=== PATIENT | male | born 1940 | race Hispanic/Latino ===

== ENCOUNTER 2017-04-19 15:24 | Inpatient (IN) | payer OTHER, MEDICARE ==
[~2017-04-19] VITALS: Ht 165.1 cm; Wt 79.4 kg
[~2017-04-19 15:24] MED LIST: ASPI-555 PO; ATOR40TA71 PO; FURO40TA5 PO; GABA-529 PO; HYDR-4154 PO; LISI40TA4 PO; METO-391 PO; METO2.5T2 PO; PANT40TA25 PO; RIVA20TA PO; VANC250C5 PO
[2017-04-19 16:11] LABS: BASOPHILS % (AUTO) 0.3 % (0.0-5.0); HEMATOCRIT 35.7 % (42-54); LYMPHOCYTES % (AUTO) 4.9 % (21.0-51.0); MEAN CORPUSCULAR HGB CONC 31.7 g/dL (32.0-36.0); MEAN CORPUSCULAR VOLUME 88.5 fL (79-99); MONOCYTES % (AUTO) 2.9 % (3.0-13.0); NEUTROPHILS % (AUTO) 91.9 % (40.0-77.0); NUCLEATED RED BLOOD CELLS 0.1 % (0.0-0.19); PLATELET COUNT (AUTO) 208 K/uL (130-400); RED BLOOD CELL COUNT(AUTO) 4.03 MIL/uL (4.50-6.20); RED CELL DISTRIBUTION WIDTH 22.7 % (11.0-15.5); WHITE BLOOD COUNT (AUTO) 16.1 K/uL (4.8-10.8)
[2017-04-19] MEDS ORDERED: SODIUM CHLORIDE 0.9% 500ML 500 ML IV ONE (16:22)
[2017-04-19 16:26] LABS: INR 1.38 (0.85-1.15); PARTIAL THROMBOPLASTIN TIME 32.4 SEC (26.3-35.5); PROTHROMBIN TIME 14.4 SEC (9.6-11.6)
[2017-04-19 16:42] LABS: ALBUMIN 2.6 g/dL (3.5-5.0); BILIRUBIN,TOTAL 1.1 mg/dL (0.2-1.0); CREATINE KINASE MB 3.9 ng/mL (0.5-3.6); CREATININE 4.5 mg/dL (0.5-1.5); POTASSIUM 3.4 mmol/L (3.5-5.1); TOTAL PROTEIN, SERUM 6.6 g/dL (6.0-8.3)
[2017-04-19] MEDS ORDERED: HYOSCYAMINE SULFATE 0.125 MG TAB.SUBL SL ONE (17:15)
[2017-04-19] MEDS ORDERED: MAG HYDROX/AL HYDROX/SIMETH ES 30 ML SUSP UDCUP ONE (17:15)
[2017-04-19] MEDS ORDERED: VANCOMYCIN 1GM+NS 250ML 250 ML IV ONE (20:22)
[2017-04-19 21:27] LABS: OCCULT BLOOD STOOL SINGLE ONLY POSITIVE (NEGATIVE)
[2017-04-19] MEDS ORDERED: ASPIRIN 325 MG TABLET ONE (21:32)
[2017-04-19] MEDS ORDERED: SODIUM CHLORIDE 0.9% 1000ML 1,000 ML IV ONE (21:32)
[2017-04-19] MEDS ORDERED: METRONIDAZOLE 500MG/100ML BAG 100 ML ONE (22:29)
[2017-04-19 23:05] LABS: CREATINE KINASE MB 2.6 ng/mL (0.5-3.6)
[2017-04-19 23:14] LABS: TROPONIN I 1.15 ng/mL (0.00-0.06)
[2017-04-20] MEDS ORDERED: HYDRALAZINE HCL 20 MG/ML VIAL IV PRN (00:30)
[2017-04-20] MEDS ORDERED: GLUCAGON 1MG KIT 1 MG ML IM PRN (00:30)
[2017-04-20] MEDS ORDERED: DiphenhydrAMINE HCL 50 MG/ML VIAL IV PRN (00:30)
[2017-04-20] MEDS: LEVOFLOXACIN 500 MG/D5W 100 ML 100 ML IV SCH (00:30)
[2017-04-20] MEDS ORDERED: NITROGLYCERIN 0.4 MG SL TAB SL PRN (00:30)
[2017-04-20] MEDS ORDERED: LEVOFLOXACIN 500 MG/D5W 100 ML 100 ML ONE (01:53)
[2017-04-20 06:18] LABS: HEMATOCRIT 30.3 % (42-54); MEAN CORPUSCULAR HEMOGLOBIN 27.1 pg (27.0-33.0); MEAN CORPUSCULAR HGB CONC 30.7 g/dL (32.0-36.0); MEAN CORPUSCULAR VOLUME 88.3 fL (79-99); NUCLEATED RED BLOOD CELLS 0.3 % (0.0-0.19); PLATELET COUNT (AUTO) 183 K/uL (130-400); RED BLOOD CELL COUNT(AUTO) 3.44 MIL/uL (4.50-6.20); RED CELL DISTRIBUTION WIDTH 22.4 % (11.0-15.5); WHITE BLOOD COUNT (AUTO) 13.3 K/uL (4.8-10.8)
[2017-04-20] MEDS ORDERED: COMPOUND PO MISCELLANEOUS 1 EACH MISC MISC PRN (06:30)
[2017-04-20 06:45] LABS: CREATINE KINASE MB 1.9 ng/mL (0.5-3.6); CREATININE 4.4 mg/dL (0.5-1.5); POTASSIUM 3.2 mmol/L (3.5-5.1)
[2017-04-20] MEDS ORDERED: IPRATROPIUM/ALBUTEROL SULFATE 3 ML SOLUTION IH ONE ×2 (07:04→11:42)
[2017-04-20] MEDS: IPRATROPIUM/ALBUTEROL SULFATE 3 ML SOLUTION IH SCH ×3 (07:06→18:32)
[2017-04-20 07:11] LABS: B-TYPE NATRIURETIC PEPTIDE 974 pg/mL (0-100)
[2017-04-20] MEDS: INSULIN HUMULIN R 100 UNIT/ML 3ML SQ SCH ×4 (07:30→21:00)
[2017-04-20] MEDS ORDERED: METRONIDAZOLE 500 MG TABLET ONE (07:36)
[2017-04-20] MEDS: [UNRECOGNIZED DRUG - OTHER] PO SCH ×8 (09:00→21:00)
[2017-04-20] MEDS ORDERED: PANTOPRAZOLE 40 MG/VIAL IVP SCH (09:00)
[2017-04-20] MEDS: FAMOTIDINE/PF 20 MG/2 ML VIAL IV SCH ×2 (09:00→20:45)
[2017-04-20] MEDS: ASPIRIN 325 MG TABLET PO SCH (09:00)
[2017-04-20] MEDS ORDERED: ASPIRIN 325 MG TABLET ONE (09:04)
[2017-04-20] MEDS ORDERED: FAMOTIDINE 20MG TAB 20 MG TAB ONE (09:06)
[2017-04-20] MEDS ORDERED: CEFTRIAXONE 1GM/D5W 50ML 50 ML IV SCH (13:00)
[2017-04-20] MEDS ORDERED: CEFTRIAXONE SODIUM 1 GM IVP SCH (13:15)
[2017-04-20] MEDS: ZINC OXIDE OINT 30GM TUBE TP SCH (15:26)
[2017-04-20 17:15] VITALS: BP 121/67
[2017-04-20] MEDS ORDERED: SODIUM CHLORIDE 0.9% 1000ML 1,000 ML IV SCH (19:00)
[2017-04-20] MEDS ORDERED: TAMS0.4C32 PO (19:04)
[2017-04-20 20:00] VITALS: BP 129/63
[2017-04-20] MEDS ORDERED: VANCOMYCIN 1GM+NS 250ML 0 ML IV ONE (20:55)
[2017-04-20 23:45] VITALS: BP 134/70
[2017-04-21] MEDS: LEVOFLOXACIN 500 MG/D5W 100 ML 100 ML IV SCH (00:35)
[2017-04-21] MEDS: IPRATROPIUM/ALBUTEROL SULFATE 3 ML SOLUTION IH SCH ×5 (00:54→23:54)
[2017-04-21 03:51] VITALS: BP 122/60
[2017-04-21 05:01] LABS: HEMATOCRIT 28.5 % (42-54); MEAN CORPUSCULAR HEMOGLOBIN 28.2 pg (27.0-33.0); MEAN CORPUSCULAR HGB CONC 32.7 g/dL (32.0-36.0); MEAN CORPUSCULAR VOLUME 86.4 fL (79-99); NUCLEATED RED BLOOD CELLS 0.3 % (0.0-0.19); PLATELET COUNT (AUTO) 200 K/uL (130-400); RED CELL DISTRIBUTION WIDTH 22.5 % (11.0-15.5); WHITE BLOOD COUNT (AUTO) 10.3 K/uL (4.8-10.8)
[2017-04-21 05:14] LABS: B-TYPE NATRIURETIC PEPTIDE 743 pg/mL (0-100)
[2017-04-21 05:17] LABS: BAND NEUTROPHILS % (MANUAL) 8 % (0-2); LYMPHOCYTES % (MANUAL) 16 % (22-44); MAN.DIFF COMMENT-IMPRESSION MANUAL DIFFERENTIAL; PLATELET MORPHOLOGY COMMENT ADEQUATE; SEGMENTED NEUTROPHILS % 76 % (40-70)
[2017-04-21 05:31] LABS: BILIRUBIN,DIRECT 0.3 mg/dL (0.0-0.3); BILIRUBIN,TOTAL 0.6 mg/dL (0.2-1.0); CREATININE 4.5 mg/dL (0.5-1.5); MAGNESIUM 1.8 mg/dL (1.80-2.40); PHOSPHORUS 5.6 mg/dL (2.5-4.9); THYROID STIMULATING HORMONE 3.4 uIU/mL (0.36-3.74); TOTAL PROTEIN, SERUM 5.3 g/dL (6.0-8.3); URIC ACID 16.3 mg/dL (2.6-7.2)
[2017-04-21 05:42] LABS: POTASSIUM 2.8 mmol/L (3.5-5.1)
[2017-04-21] MEDS: INSULIN HUMULIN R 100 UNIT/ML 3ML SQ SCH ×4 (07:30→21:00)
[2017-04-21 07:41] VITALS: BP 123/64
[2017-04-21] MEDS: FOLIC ACID/VITAMIN B COMP W-C 1 MG CAPSULE PO SCH (08:26)
[2017-04-21] MEDS: ASPIRIN 325 MG TABLET PO SCH (08:26)
[2017-04-21] MEDS: ZINC OXIDE OINT 30GM TUBE TP SCH (08:26)
[2017-04-21] MEDS: FAMOTIDINE/PF 20 MG/2 ML VIAL IV SCH ×2 (08:26→22:46)
[2017-04-21] MEDS ORDERED: PHARMACY COMMUNICATION MISC SCH (09:30)
[2017-04-21 09:59] LABS: HEMATOCRIT 29.3 % (42-54); MEAN CORPUSCULAR HEMOGLOBIN 28.2 pg (27.0-33.0); MEAN CORPUSCULAR HGB CONC 32.3 g/dL (32.0-36.0); MEAN CORPUSCULAR VOLUME 87.4 fL (79-99); NUCLEATED RED BLOOD CELLS 0.6 % (0.0-0.19); PLATELET COUNT (AUTO) 187 K/uL (130-400); RED BLOOD CELL COUNT(AUTO) 3.36 MIL/uL (4.50-6.20); RED CELL DISTRIBUTION WIDTH 22.3 % (11.0-15.5)
[2017-04-21 10:11] LABS: CREATININE 4.5 mg/dL (0.5-1.5)
[2017-04-21 10:17] LABS: POTASSIUM 2.8 mmol/L (3.5-5.1)
[2017-04-21] MEDS: [UNRECOGNIZED DRUG - OTHER] PO SCH ×8 (10:26→23:16)
[2017-04-21 11:34] VITALS: BP 129/65
[2017-04-21 11:42] LABS: LYMPHOCYTES % (MANUAL) 15 % (22-44); MAN.DIFF COMMENT-IMPRESSION MANUAL DIFFERENTIAL; MONOCYTES % (MANUAL) 6 % (2-9); PLATELET MORPHOLOGY COMMENT ADEQUATE; SEGMENTED NEUTROPHILS % 79 % (40-70)
[2017-04-21] MEDS ORDERED: LIDOCAINE HCL-MPF 1% 2ML VIAL IJ PRN (12:00)
[2017-04-21] MEDS ORDERED: POTASSIUM CHLORIDE 10% ELIXIR 20 MEQ/15 ML UDCUP PO PRN (12:00)
[2017-04-21] MEDS ORDERED: POTASSIUM CHLORIDE 20MEQ/100ML 100 ML IV PRN (12:00)
[2017-04-21] MEDS: POTASSIUM CHLORIDE 20 MEQ ERTAB PO PRN ×3 (12:47→18:41)
[2017-04-21] MEDS: GABAPENTIN 100 MG CAPSULE PO SCH ×2 (15:23→22:47)
[2017-04-21] MEDS: HYDRALAZINE HCL 25 MG TABLET PO SCH ×2 (15:24→21:00)
[2017-04-21 16:29] VITALS: BP 136/69
[2017-04-21 18:40] LABS: SPECIMENTYPE,BODY FLUID PLEURAL
[2017-04-21 18:41] LABS: APPEARANCE BODY FLUID CLOUDY (CLEAR); COLOR,BODY FLUID ORANGE (LT YELLOW); TOTAL VOLUME,BODY FLUID 775 mL
[2017-04-21 18:42] LABS: BODY FLUID WBC 3338 /cu. mm.
[2017-04-21 18:43] LABS: BODY FLUID RBC 11700 /cu. mm.
[2017-04-21 19:17] LABS: BF EOSINOPHIL 1 %; BF LYMPHOCYTE 14 %; BF MONOCYTE 3 %
[2017-04-21 19:45] LABS: CRP QUANTITATIVE 135.6 mg/L (0.00-9.0); HIGH SENSITIVITY CRP 121.49 mg/L (0.0-3.0)
[2017-04-21 19:58] VITALS: BP 140/62
[2017-04-21] MEDS: TAMSULOSIN HCL 0.4 MG CAP.ER.24H PO SCH (22:47)
[2017-04-21] MEDS: METOPROLOL TARTRATE 50 MG TAB PO SCH (22:47)
[2017-04-22] VITALS (7 sets, daily range): BP systolic 111–131; BP diastolic 51–64
[2017-04-22 01:02] LABS: APPEARANCE,URINE Clear (CLEAR); BILIRUBIN,URINE Negative (NEGATIVE); COLOR,URINE Yellow (YELLOW); GLUCOSE, URINE (UA) Negative (NEGATIVE); KETONES,URINE Negative (NEGATIVE); LEUKOCYTE ESTERASE ,URINE Moderate (NEGATIVE); NITRATE,URINE Negative (NEGATIVE); OCCULT BLOOD,URINE Negative (NEGATIVE); PROTEIN,URINE POS 2+ (NEGATIVE); UROBILINOGEN,URINE 0.2 mg/dL (0.2-1.0)
[2017-04-22 01:30] LABS: AMORPHOUS SEDIMENT,UR Moderate /LPF (None Seen); BACTERIA,URINE Moderate /HPF (None Seen); MUCUS,URINE Moderate LPF (None Seen); RENAL EPITHELIAL CELLS,URINE Few /LPF (None Seen); SQUAMOUS EPITHELIAL CELL,UR Few /LPF (0-2)
[2017-04-22 04:23] LABS: HEMATOCRIT 28.3 % (42-54); MEAN CORPUSCULAR HEMOGLOBIN 28.9 pg (27.0-33.0); MEAN CORPUSCULAR HGB CONC 33.4 g/dL (32.0-36.0); MEAN CORPUSCULAR VOLUME 86.5 fL (79-99); NUCLEATED RED BLOOD CELLS 0.6 % (0.0-0.19); PLATELET COUNT (AUTO) 175 K/uL (130-400); RED BLOOD CELL COUNT(AUTO) 3.27 MIL/uL (4.50-6.20); RED CELL DISTRIBUTION WIDTH 22.2 % (11.0-15.5); WHITE BLOOD COUNT (AUTO) 8.7 K/uL (4.8-10.8)
[2017-04-22 04:41] LABS: CREATININE 4.3 mg/dL (0.5-1.5); POTASSIUM 3.7 mmol/L (3.5-5.1)
[2017-04-22 04:46] LABS: B-TYPE NATRIURETIC PEPTIDE 1080 pg/mL (0-100); BAND NEUTROPHILS % (MANUAL) 6 % (0-2); EOSINOPHILS % (MANUAL) 1 % (1-6); LYMPHOCYTES % (MANUAL) 12 % (22-44); MAN.DIFF COMMENT-IMPRESSION MANUAL DIFFERENTIAL; MONOCYTES % (MANUAL) 8 % (2-9); PLATELET MORPHOLOGY COMMENT ADEQUATE; SEGMENTED NEUTROPHILS % 73 % (40-70)
[2017-04-22] MEDS: IPRATROPIUM/ALBUTEROL SULFATE 3 ML SOLUTION IH SCH ×3 (06:21→18:47)
[2017-04-22] MEDS: INSULIN HUMULIN R 100 UNIT/ML 3ML SQ SCH ×4 (07:30→21:00)
[2017-04-22] MEDS: [UNRECOGNIZED DRUG - OTHER] PO SCH ×8 (09:00→22:45)
[2017-04-22] MEDS ORDERED: METOLAZONE 2.5 MG TABLET PO SCH (09:00)
[2017-04-22] MEDS ORDERED: FUROSEMIDE 40 MG TABLET PO SCH (09:00)
[2017-04-22] MEDS: ALLOPURINOL 100 MG TABLET PO SCH (09:00)
[2017-04-22] MEDS: ZINC OXIDE OINT 30GM TUBE TP SCH (09:00)
[2017-04-22] MEDS ORDERED: LIDOCAINE 1%-EPI 1:100,000 20 ML VIAL IJ SCH (12:30)
[2017-04-22] MEDS ORDERED: MORPHINE SULFATE 4 MG/1ML SYG IV SCH (12:30)
[2017-04-22] MEDS ORDERED: LIDOCAINE HCL/EPINEPHRINE 50 ML VIAL IJ SCH (13:00)
[2017-04-22 13:54] LABS: APPEARANCE BODY FLUID CLEAR (CLEAR); COLOR,BODY FLUID YELLOW (LT YELLOW); SPECIMENTYPE,BODY FLUID SYNOVIAL
[2017-04-22 13:55] LABS: BODY FLUID RBC 727 /cu. mm.; BODY FLUID WBC 235 /cu. mm.
[2017-04-22 13:59] LABS: TOTAL VOLUME,BODY FLUID 50 mL
[2017-04-22] MEDS: HYDRALAZINE HCL 25 MG TABLET PO SCH ×3 (14:00→21:00)
[2017-04-22] MEDS: GABAPENTIN 100 MG CAPSULE PO SCH ×4 (14:00→22:26)
[2017-04-22 14:08] LABS: BF LYMPHOCYTE 23 %; BF MESOTHELIAL 5 %
[2017-04-22 14:10] LABS: GLUCOSE,BODY FLUID 154 mg/dL (1-40)
[2017-04-22] MEDS: METOPROLOL TARTRATE 50 MG TAB PO SCH ×2 (16:42→21:00)
[2017-04-22] MEDS: ASPIRIN 81 MG EC TAB PO SCH (16:42)
[2017-04-22] MEDS: FOLIC ACID/VITAMIN B COMP W-C 1 MG CAPSULE PO SCH (16:42)
[2017-04-22] MEDS: FAMOTIDINE/PF 20 MG/2 ML VIAL IV SCH ×2 (16:43→22:26)
[2017-04-22] MEDS: LEVOFLOXACIN 250 MG/D5W 50ML 50 ML IV SCH (16:43)
[2017-04-22] MEDS: TAMSULOSIN HCL 0.4 MG CAP.ER.24H PO SCH ×2 (21:00→22:26)
[2017-04-23] MEDS: IPRATROPIUM/ALBUTEROL SULFATE 3 ML SOLUTION IH SCH ×4 (00:04→18:27)
[2017-04-23 03:43] VITALS: BP 131/70
[2017-04-23 04:40] LABS: HEMATOCRIT 30.4 % (42-54); MEAN CORPUSCULAR HEMOGLOBIN 27.6 pg (27.0-33.0); MEAN CORPUSCULAR HGB CONC 31.3 g/dL (32.0-36.0); MEAN CORPUSCULAR VOLUME 88.2 fL (79-99); NUCLEATED RED BLOOD CELLS 0.3 % (0.0-0.19); PLATELET COUNT (AUTO) 187 K/uL (130-400); RED BLOOD CELL COUNT(AUTO) 3.45 MIL/uL (4.50-6.20); RED CELL DISTRIBUTION WIDTH 22.5 % (11.0-15.5); WHITE BLOOD COUNT (AUTO) 9.8 K/uL (4.8-10.8)
[2017-04-23 04:47] LABS: MAGNESIUM 1.9 mg/dL (1.80-2.40); PHOSPHORUS 5.8 mg/dL (2.5-4.9); POTASSIUM 3.9 mmol/L (3.5-5.1)
[2017-04-23] MEDS: INSULIN HUMULIN R 100 UNIT/ML 3ML SQ SCH ×4 (06:34→21:00)
[2017-04-23 07:34] VITALS: BP 113/64
[2017-04-23] MEDS: LEVOFLOXACIN 250 MG/D5W 50ML 50 ML IV SCH (08:11)
[2017-04-23] MEDS: GABAPENTIN 100 MG CAPSULE PO SCH ×3 (08:11→21:28)
[2017-04-23] MEDS: ASPIRIN 81 MG EC TAB PO SCH (08:11)
[2017-04-23] MEDS: ALLOPURINOL 100 MG TABLET PO SCH (08:12)
[2017-04-23] MEDS: FOLIC ACID/VITAMIN B COMP W-C 1 MG CAPSULE PO SCH (08:12)
[2017-04-23] MEDS: METOPROLOL TARTRATE 50 MG TAB PO SCH ×2 (08:12→21:27)
[2017-04-23] MEDS: HYDRALAZINE HCL 25 MG TABLET PO SCH ×3 (08:12→21:28)
[2017-04-23] MEDS: ZINC OXIDE OINT 30GM TUBE TP SCH (08:13)
[2017-04-23] MEDS: [UNRECOGNIZED DRUG - OTHER] PO SCH ×4 (08:13→12:51)
[2017-04-23] MEDS: FAMOTIDINE/PF 20 MG/2 ML VIAL IV SCH ×2 (08:16→21:25)
[2017-04-23 11:45] VITALS: BP 127/56
[2017-04-23 16:35] VITALS: BP 128/66
[2017-04-23] MEDS: VANCOMYCIN ORAL SOLN PO SCH ×4 (17:43→21:24)
[2017-04-23 20:00] VITALS: BP 148/76
[2017-04-23] MEDS: TAMSULOSIN HCL 0.4 MG CAP.ER.24H PO SCH (21:28)
[2017-04-24] VITALS: BP 122/68
[2017-04-24] MEDS: IPRATROPIUM/ALBUTEROL SULFATE 3 ML SOLUTION IH SCH ×4 (00:32→18:36)
[2017-04-24 04:00] VITALS: BP 123/67
[2017-04-24 04:57] LABS: HEMATOCRIT 31.3 % (42-54); MEAN CORPUSCULAR HEMOGLOBIN 27.7 pg (27.0-33.0); MEAN CORPUSCULAR HGB CONC 31.7 g/dL (32.0-36.0); MEAN CORPUSCULAR VOLUME 87.3 fL (79-99); NUCLEATED RED BLOOD CELLS 0.4 % (0.0-0.19); PLATELET COUNT (AUTO) 199 K/uL (130-400); RED BLOOD CELL COUNT(AUTO) 3.59 MIL/uL (4.50-6.20); RED CELL DISTRIBUTION WIDTH 22.7 % (11.0-15.5); WHITE BLOOD COUNT (AUTO) 8.7 K/uL (4.8-10.8)
[2017-04-24 05:18] LABS: CREATININE 3.5 mg/dL (0.5-1.5)
[2017-04-24] MEDS: INSULIN HUMULIN R 100 UNIT/ML 3ML SQ SCH ×4 (06:42→20:40)
[2017-04-24 08:00] VITALS: BP 128/62
[2017-04-24] MEDS: FAMOTIDINE/PF 20 MG/2 ML VIAL IV SCH ×2 (09:15→20:38)
[2017-04-24] MEDS: ASPIRIN 81 MG EC TAB PO SCH (09:15)
[2017-04-24] MEDS: HYDRALAZINE HCL 25 MG TABLET PO SCH ×3 (09:15→20:38)
[2017-04-24] MEDS: ZINC OXIDE OINT 30GM TUBE TP SCH (09:16)
[2017-04-24] MEDS: GABAPENTIN 100 MG CAPSULE PO SCH ×3 (09:16→20:38)
[2017-04-24] MEDS: ALLOPURINOL 100 MG TABLET PO SCH (09:16)
[2017-04-24] MEDS: METOPROLOL TARTRATE 50 MG TAB PO SCH ×2 (09:16→20:38)
[2017-04-24] MEDS: VANCOMYCIN ORAL SOLN PO SCH ×8 (09:16→20:37)
[2017-04-24] MEDS: FOLIC ACID/VITAMIN B COMP W-C 1 MG CAPSULE PO SCH (09:16)
[2017-04-24 12:11] VITALS: BP 110/51
[2017-04-24 14:30] LABS: ALBUMIN 2.3 g/dL (3.5-5.0); CREATININE 3.4 mg/dL (0.5-1.5); PHOSPHORUS 5.2 mg/dL (2.5-4.9); POTASSIUM 4.1 mmol/L (3.5-5.1)
[2017-04-24 16:00] VITALS: BP 119/60
[2017-04-24 20:15] VITALS: BP 133/66
[2017-04-24] MEDS: TAMSULOSIN HCL 0.4 MG CAP.ER.24H PO SCH (20:38)
[2017-04-24] MEDS ORDERED: COLCHICINE 0.6 MG TABLET PO SCH (21:00)
[2017-04-25] MEDS: IPRATROPIUM/ALBUTEROL SULFATE 3 ML SOLUTION IH SCH ×5 (00:29→23:11)
[2017-04-25 04:00] VITALS: BP 123/65
[2017-04-25 06:07] LABS: MEAN CORPUSCULAR HEMOGLOBIN 28.4 pg (27.0-33.0); MEAN CORPUSCULAR HGB CONC 32.4 g/dL (32.0-36.0); MEAN CORPUSCULAR VOLUME 87.9 fL (79-99); NUCLEATED RED BLOOD CELLS 0.2 % (0.0-0.19); PLATELET COUNT (AUTO) 193 K/uL (130-400); RED BLOOD CELL COUNT(AUTO) 3.53 MIL/uL (4.50-6.20); RED CELL DISTRIBUTION WIDTH 22.6 % (11.0-15.5); WHITE BLOOD COUNT (AUTO) 7.4 K/uL (4.8-10.8)
[2017-04-25] MEDS: INSULIN HUMULIN R 100 UNIT/ML 3ML SQ SCH ×4 (06:17→21:00)
[2017-04-25 06:25] LABS: POTASSIUM 4.1 mmol/L (3.5-5.1)
[2017-04-25 08:00] VITALS: BP 137/62
[2017-04-25] MEDS: ZINC OXIDE OINT 30GM TUBE TP SCH (09:00)
[2017-04-25] MEDS: METOPROLOL TARTRATE 50 MG TAB PO SCH ×2 (09:51→21:28)
[2017-04-25] MEDS: VANCOMYCIN ORAL SOLN PO SCH ×8 (09:51→21:28)
[2017-04-25] MEDS: HYDRALAZINE HCL 25 MG TABLET PO SCH ×3 (09:51→21:29)
[2017-04-25] MEDS: ALLOPURINOL 100 MG TABLET PO SCH (09:51)
[2017-04-25] MEDS: FAMOTIDINE/PF 20 MG/2 ML VIAL IV SCH ×2 (09:52→21:29)
[2017-04-25] MEDS: GABAPENTIN 100 MG CAPSULE PO SCH ×3 (09:52→21:28)
[2017-04-25] MEDS: FOLIC ACID/VITAMIN B COMP W-C 1 MG CAPSULE PO SCH (09:52)
[2017-04-25] MEDS: ASPIRIN 81 MG EC TAB PO SCH (09:56)
[2017-04-25 12:00] VITALS: BP 129/73
[2017-04-25 16:00] VITALS: BP 113/61
[2017-04-25 19:00] VITALS: BP 114/53
[2017-04-25] MEDS: TAMSULOSIN HCL 0.4 MG CAP.ER.24H PO SCH (21:28)
[2017-04-26] VITALS: BP 132/74
[2017-04-26 04:00] VITALS: BP 114/56
[2017-04-26] MEDS: INSULIN HUMULIN R 100 UNIT/ML 3ML SQ SCH ×4 (06:35→21:00)
[2017-04-26] MEDS: IPRATROPIUM/ALBUTEROL SULFATE 3 ML SOLUTION IH SCH ×4 (07:10→23:48)
[2017-04-26 08:00] VITALS: BP 131/72
[2017-04-26] MEDS: ZINC OXIDE OINT 30GM TUBE TP SCH (09:00)
[2017-04-26 09:42] LABS: CREATININE 2.8 mg/dL (0.5-1.5); POTASSIUM 4.2 mmol/L (3.5-5.1)
[2017-04-26 10:04] LABS: CRYSTALS, SYNOVIAL FLUID SEE SEPARATE REPORT
[2017-04-26 11:45] VITALS: BP 143/65
[2017-04-26] MEDS: ASPIRIN 81 MG EC TAB PO SCH (11:49)
[2017-04-26] MEDS: GABAPENTIN 100 MG CAPSULE PO SCH ×3 (11:49→21:30)
[2017-04-26] MEDS: ALLOPURINOL 100 MG TABLET PO SCH (11:49)
[2017-04-26] MEDS: FAMOTIDINE/PF 20 MG/2 ML VIAL IV SCH ×2 (11:49→21:29)
[2017-04-26] MEDS: METOPROLOL TARTRATE 50 MG TAB PO SCH ×2 (11:49→21:29)
[2017-04-26] MEDS: HYDRALAZINE HCL 25 MG TABLET PO SCH ×3 (11:49→21:29)
[2017-04-26] MEDS: FOLIC ACID/VITAMIN B COMP W-C 1 MG CAPSULE PO SCH (11:50)
[2017-04-26] MEDS: VANCOMYCIN ORAL SOLN PO SCH ×8 (12:02→21:30)
[2017-04-26 15:51] VITALS: BP 122/57
[2017-04-26 20:00] VITALS: BP 116/65
[2017-04-26] MEDS: TAMSULOSIN HCL 0.4 MG CAP.ER.24H PO SCH (21:30)
[2017-04-27] VITALS: BP 131/65
[2017-04-27 03:58] VITALS: BP 114/58
[2017-04-27 04:11] LABS: HEMATOCRIT 30.1 % (42-54); MEAN CORPUSCULAR HEMOGLOBIN 28.6 pg (27.0-33.0); MEAN CORPUSCULAR HGB CONC 32.5 g/dL (32.0-36.0); NUCLEATED RED BLOOD CELLS 0.3 % (0.0-0.19); PLATELET COUNT (AUTO) 179 K/uL (130-400); RED BLOOD CELL COUNT(AUTO) 3.42 MIL/uL (4.50-6.20); RED CELL DISTRIBUTION WIDTH 21.5 % (11.0-15.5); WHITE BLOOD COUNT (AUTO) 6.8 K/uL (4.8-10.8)
[2017-04-27 04:34] LABS: POTASSIUM 4.7 mmol/L (3.5-5.1)
[2017-04-27] MEDS: INSULIN HUMULIN R 100 UNIT/ML 3ML SQ SCH ×4 (06:30→21:00)
[2017-04-27] MEDS: IPRATROPIUM/ALBUTEROL SULFATE 3 ML SOLUTION IH SCH ×4 (07:03→23:57)
[2017-04-27 08:00] VITALS: BP 105/61
[2017-04-27] MEDS ORDERED: FUROSEMIDE 40 MG TABLET PO SCH (09:00)
[2017-04-27] MEDS: ZINC OXIDE OINT 30GM TUBE TP SCH (09:00)
[2017-04-27] MEDS: METOPROLOL TARTRATE 50 MG TAB PO SCH ×2 (09:00→21:36)
[2017-04-27] MEDS: HYDRALAZINE HCL 25 MG TABLET PO SCH ×3 (09:00→21:00)
[2017-04-27] MEDS: GABAPENTIN 100 MG CAPSULE PO SCH ×3 (09:00→21:35)
[2017-04-27] MEDS: FAMOTIDINE/PF 20 MG/2 ML VIAL IV SCH ×2 (10:46→21:34)
[2017-04-27 11:33] LABS: HEMATOCRIT 31.4 % (42-54); MEAN CORPUSCULAR HEMOGLOBIN 27.4 pg (27.0-33.0); MEAN CORPUSCULAR HGB CONC 31.3 g/dL (32.0-36.0); MEAN CORPUSCULAR VOLUME 87.8 fL (79-99); NUCLEATED RED BLOOD CELLS 0.5 % (0.0-0.19); PLATELET COUNT (AUTO) 157 K/uL (130-400); RED BLOOD CELL COUNT(AUTO) 3.58 MIL/uL (4.50-6.20); RED CELL DISTRIBUTION WIDTH 20.5 % (11.0-15.5)
[2017-04-27 11:37] LABS: ALBUMIN 2.3 g/dL (3.5-5.0); BILIRUBIN,TOTAL 0.5 mg/dL (0.2-1.0); POTASSIUM 4.8 mmol/L (3.5-5.1); TOTAL PROTEIN, SERUM 5.9 g/dL (6.0-8.3)
[2017-04-27 11:55] VITALS: BP 102/53
[2017-04-27] MEDS: VANCOMYCIN ORAL SOLN PO SCH ×8 (13:00→21:39)
[2017-04-27] MEDS: ASPIRIN 81 MG EC TAB PO SCH (15:07)
[2017-04-27] MEDS: FOLIC ACID/VITAMIN B COMP W-C 1 MG CAPSULE PO SCH (15:07)
[2017-04-27] MEDS: ALLOPURINOL 100 MG TABLET PO SCH (15:08)
[2017-04-27 16:00] VITALS: BP 111/69
[2017-04-27 20:00] VITALS: BP 121/62
[2017-04-27] MEDS: DEXTROSE 5 % AND 0.9 % NACL 1,000 ML IV SCH (20:37)
[2017-04-27] MEDS: TAMSULOSIN HCL 0.4 MG CAP.ER.24H PO SCH (21:35)
[2017-04-28] VITALS (7 sets, daily range): BP systolic 91–111; BP diastolic 39–73
[2017-04-28 04:21] LABS: HEMATOCRIT 30.7 % (42-54); MEAN CORPUSCULAR HEMOGLOBIN 27.6 pg (27.0-33.0); MEAN CORPUSCULAR HGB CONC 30.9 g/dL (32.0-36.0); MEAN CORPUSCULAR VOLUME 89.2 fL (79-99); NUCLEATED RED BLOOD CELLS 0.8 % (0.0-0.19); PLATELET COUNT (AUTO) 148 K/uL (130-400); RED BLOOD CELL COUNT(AUTO) 3.44 MIL/uL (4.50-6.20); RED CELL DISTRIBUTION WIDTH 20.6 % (11.0-15.5); WHITE BLOOD COUNT (AUTO) 6.5 K/uL (4.8-10.8)
[2017-04-28 04:49] LABS: CREATININE 3.4 mg/dL (0.5-1.5); POTASSIUM 5.1 mmol/L (3.5-5.1)
[2017-04-28] MEDS: IPRATROPIUM/ALBUTEROL SULFATE 3 ML SOLUTION IH SCH ×3 (07:24→18:33)
[2017-04-28] MEDS: INSULIN HUMULIN R 100 UNIT/ML 3ML SQ SCH ×5 (07:30→21:00)
[2017-04-28] MEDS: ZINC OXIDE OINT 30GM TUBE TP SCH (09:00)
[2017-04-28] MEDS: DEXTROSE 5 % AND 0.9 % NACL 1,000 ML IV SCH ×2 (09:40→20:59)
[2017-04-28] MEDS: GABAPENTIN 100 MG CAPSULE PO SCH ×2 (09:41→15:03)
[2017-04-28] MEDS: FOLIC ACID/VITAMIN B COMP W-C 1 MG CAPSULE PO SCH (09:42)
[2017-04-28] MEDS: ALLOPURINOL 100 MG TABLET PO SCH (09:42)
[2017-04-28] MEDS: ASPIRIN 81 MG EC TAB PO SCH (09:42)
[2017-04-28] MEDS: HYDRALAZINE HCL 25 MG TABLET PO SCH ×3 (09:42→20:56)
[2017-04-28] MEDS: ENOXAPARIN SODIUM 30 MG/0.3 ML SQ SCH (09:44)
[2017-04-28] MEDS: FAMOTIDINE/PF 20 MG/2 ML VIAL IV SCH ×2 (09:45→20:57)
[2017-04-28] MEDS: VANCOMYCIN ORAL SOLN PO SCH ×8 (09:48→21:00)
[2017-04-28] MEDS: TAMSULOSIN HCL 0.4 MG CAP.ER.24H PO SCH (20:57)
[2017-04-28] MEDS ORDERED: METOPROLOL TARTRATE 25 MG TAB PO SCH (21:00)
[2017-04-29] VITALS (37 sets, daily range): BP systolic 59–175; BP diastolic 37–99
[2017-04-29] MEDS: IPRATROPIUM/ALBUTEROL SULFATE 3 ML SOLUTION IH SCH ×5 (00:07→23:57)
[2017-04-29 05:06] LABS: HEMATOCRIT 30.8 % (42-54); MEAN CORPUSCULAR HEMOGLOBIN 28.2 pg (27.0-33.0); MEAN CORPUSCULAR HGB CONC 31.2 g/dL (32.0-36.0); MEAN CORPUSCULAR VOLUME 90.3 fL (79-99); PLATELET COUNT (AUTO) 117 K/uL (130-400); RED BLOOD CELL COUNT(AUTO) 3.41 MIL/uL (4.50-6.20); RED CELL DISTRIBUTION WIDTH 20.5 % (11.0-15.5); WHITE BLOOD COUNT (AUTO) 7.1 K/uL (4.8-10.8)
[2017-04-29 05:19] LABS: CREATININE 4.1 mg/dL (0.5-1.5)
[2017-04-29] MEDS: INSULIN HUMULIN R 100 UNIT/ML 3ML SQ SCH ×3 (06:15→17:41)
[2017-04-29] MEDS: ALLOPURINOL 100 MG TABLET PO SCH (09:00)
[2017-04-29] MEDS: VANCOMYCIN ORAL SOLN PO SCH ×8 (09:00→22:08)
[2017-04-29] MEDS: ASPIRIN 81 MG EC TAB PO SCH (09:00)
[2017-04-29] MEDS: FOLIC ACID/VITAMIN B COMP W-C 1 MG CAPSULE PO SCH (09:00)
[2017-04-29] MEDS ORDERED: LEVOFLOXACIN 500 MG/D5W 100 ML 100 ML IV SCH (09:00)
[2017-04-29 09:33] LABS: ABG BASE EXCESS -7.8 mmol/L (-2.0-3.0); ABG HCO3 22.6 mmol/L (21.0-28.0); ABG OXYGEN SATURATION 92.9 % (95.0-99.0); ABG PCO2 68 mmHg (35-48)
[2017-04-29] MEDS: FAMOTIDINE/PF 20 MG/2 ML VIAL IV SCH ×2 (09:36→22:06)
[2017-04-29] MEDS ORDERED: MEROPENEM 500MG+NS 50ML 50 ML IV SCH (10:00)
[2017-04-29] MEDS: MEROPENEM 500 MG VIAL IVP SCH ×2 (11:06→17:46)
[2017-04-29] MEDS: DEXTROSE 5 % AND 0.9 % NACL 1,000 ML IV SCH (11:07)
[2017-04-29] MEDS: ZINC OXIDE OINT 30GM TUBE TP SCH (11:07)
[2017-04-29] MEDS: ENOXAPARIN SODIUM 30 MG/0.3 ML SQ SCH (11:09)
[2017-04-29 12:08] LABS: ABG BASE EXCESS -7.8 mmol/L (-2.0-3.0); ABG HCO3 22.9 mmol/L (21.0-28.0); ABG OXYGEN SATURATION 96.8 % (95.0-99.0); ABG PCO2 71 mmHg (35-48)
[2017-04-29] MEDS ORDERED: NOREPINEPHRINE 4MG/NS 250ML 250 ML IV SCH (13:15)
[2017-04-29 14:36] LABS: ABG BASE EXCESS -9.2 mmol/L (-2.0-3.0); ABG HCO3 20.7 mmol/L (21.0-28.0); ABG OXYGEN SATURATION 94.7 % (95.0-99.0); ABG PCO2 62 mmHg (35-48)
[2017-04-29 17:04] LABS: APPEARANCE BODY FLUID CLOUDY (CLEAR); COLOR,BODY FLUID ORANGE (LT YELLOW); SPECIMENTYPE,BODY FLUID PLEURAL
[2017-04-29 17:05] LABS: BODY FLUID RBC 11700 /cu. mm.; BODY FLUID WBC 317 /cu. mm.; TOTAL VOLUME,BODY FLUID 1750 mL
[2017-04-29] MEDS ORDERED: SODIUM BICARB 50MEQ 50ML VIAL IV SCH (17:30)
[2017-04-29 17:31] LABS: BF LYMPHOCYTE 29 %; BF MONOCYTE 5 %
[2017-04-29] MEDS: SYRING IV SCH (17:51)
[2017-04-29] MEDS: 1/2 NORMAL SALINE IV SCH (17:51)
[2017-04-29] MEDS: SODIUM BICARB 8.4% IV SCH (17:51)
[2017-04-29] MEDS: TAMSULOSIN HCL 0.4 MG CAP.ER.24H PO SCH (22:08)
[2017-04-30] VITALS (27 sets, daily range): BP systolic 95–149; BP diastolic 40–102
[2017-04-30] MEDS: MEROPENEM 500 MG VIAL IVP SCH ×3 (02:42→18:20)
[2017-04-30 03:26] LABS: ABG HCO3 23.8 mmol/L (21.0-28.0); ABG OXYGEN SATURATION 96.5 % (95.0-99.0); ABG PCO2 60 mmHg (35-48)
[2017-04-30 04:14] LABS: HEMATOCRIT 30.4 % (42-54); INR 1.16 (0.85-1.15); MEAN CORPUSCULAR HEMOGLOBIN 27.8 pg (27.0-33.0); MEAN CORPUSCULAR HGB CONC 31.4 g/dL (32.0-36.0); MEAN CORPUSCULAR VOLUME 88.7 fL (79-99); NUCLEATED RED BLOOD CELLS 0.8 % (0.0-0.19); PARTIAL THROMBOPLASTIN TIME 32.9 SEC (26.3-35.5); PLATELET COUNT (AUTO) 112 K/uL (130-400); PROTHROMBIN TIME 12.1 SEC (9.6-11.6); RED BLOOD CELL COUNT(AUTO) 3.43 MIL/uL (4.50-6.20); RED CELL DISTRIBUTION WIDTH 20.8 % (11.0-15.5); WHITE BLOOD COUNT (AUTO) 10.7 K/uL (4.8-10.8)
[2017-04-30 04:35] LABS: BAND NEUTROPHILS % (MANUAL) 4 % (0-2); LYMPHOCYTES % (MANUAL) 3 % (22-44); MAN.DIFF COMMENT-IMPRESSION MANUAL DIFFERENTIAL; MONOCYTES % (MANUAL) 6 % (2-9); REACTIVE LYMPHOCYTES 1 % (0-0); SEGMENTED NEUTROPHILS % 86 % (40-70)
[2017-04-30 04:36] LABS: PLATELET MORPHOLOGY COMMENT SLIGHTLY DECREASED
[2017-04-30 04:37] LABS: CREATININE 4.6 mg/dL (0.5-1.5); POTASSIUM 4.9 mmol/L (3.5-5.1); TOTAL PROTEIN, SERUM 6.1 g/dL (6.0-8.3)
[2017-04-30] MEDS: INSULIN HUMULIN R 100 UNIT/ML 3ML SQ SCH ×4 (06:00→18:00)
[2017-04-30] MEDS: IPRATROPIUM/ALBUTEROL SULFATE 3 ML SOLUTION IH SCH ×4 (07:14→23:42)
[2017-04-30] MEDS: ALLOPURINOL 100 MG TABLET PO SCH (08:48)
[2017-04-30] MEDS: FAMOTIDINE/PF 20 MG/2 ML VIAL IV SCH ×2 (08:48→21:59)
[2017-04-30] MEDS: FOLIC ACID/VITAMIN B COMP W-C 1 MG CAPSULE PO SCH (08:48)
[2017-04-30] MEDS: ASPIRIN 81 MG EC TAB PO SCH (08:48)
[2017-04-30] MEDS: ZINC OXIDE OINT 30GM TUBE TP SCH (09:00)
[2017-04-30] MEDS: VANCOMYCIN ORAL SOLN PO SCH ×8 (09:24→22:00)
[2017-04-30] MEDS ORDERED: LIDOCAINE 1%-EPI 1:100,000 20 ML VIAL IJ SCH ×2 (12:45→16:30)
[2017-04-30] MEDS: 1/2 NORMAL SALINE IV SCH (13:32)
[2017-04-30] MEDS: SODIUM BICARB 8.4% IV SCH (13:32)
[2017-04-30] MEDS: SYRING IV SCH (13:32)
[2017-04-30] MEDS ORDERED: LIDOCAINE HCL 1% 20 ML VIAL ONE (16:22)
[2017-04-30] MEDS ORDERED: HEPARIN SODIUM 5000UNIT/ML 1ML VIAL ONE (17:38)
[2017-04-30] MEDS: DEXTROSE 50%-WATER 50 ML DISP.SYRIN IV PRN (18:20)
[2017-04-30 19:14] LABS: HEMATOCRIT 29.8 % (42-54)
[2017-04-30] MEDS ORDERED: ALBUMIN (HUMAN) 25% 100 ML IV PRN (19:30)
[2017-04-30] MEDS ORDERED: HEPARIN SODIUM 5000UNIT/ML 1ML VIAL IJ PRN (19:30)
[2017-04-30] MEDS ORDERED: SODIUM CHLORIDE 0.9% 1000ML 1,000 ML IV PRN (19:30)
[2017-04-30] MEDS ORDERED: 0.9% SODIUM CHLORIDE 250 ML IV BAG IV PRN (19:30)
[2017-04-30 19:39] LABS: ALBUMIN 2.4 g/dL (3.5-5.0); CREATINE KINASE MB 2.7 ng/mL (0.5-3.6)
[2017-04-30 19:58] LABS: % IRON SATURATION 5.8 % (30-44)
[2017-04-30] MEDS: TAMSULOSIN HCL 0.4 MG CAP.ER.24H PO SCH (21:59)
[2017-05-01] VITALS (16 sets, daily range): BP systolic 121–162; BP diastolic 50–74
[2017-05-01] MEDS: MEROPENEM 500 MG VIAL IVP SCH ×3 (00:43→17:14)
[2017-05-01 04:11] LABS: HEMATOCRIT 28.7 % (42-54); MEAN CORPUSCULAR HEMOGLOBIN 28.4 pg (27.0-33.0); MEAN CORPUSCULAR HGB CONC 32.6 g/dL (32.0-36.0); MEAN CORPUSCULAR VOLUME 87.1 fL (79-99); PLATELET COUNT (AUTO) 108 K/uL (130-400); RED CELL DISTRIBUTION WIDTH 20.3 % (11.0-15.5); WHITE BLOOD COUNT (AUTO) 11.5 K/uL (4.8-10.8)
[2017-05-01 04:43] LABS: CREATININE 3.9 mg/dL (0.5-1.5); POTASSIUM 4.5 mmol/L (3.5-5.1)
[2017-05-01] MEDS: IPRATROPIUM/ALBUTEROL SULFATE 3 ML SOLUTION IH SCH ×4 (05:52→23:49)
[2017-05-01] MEDS: INSULIN HUMULIN R 100 UNIT/ML 3ML SQ SCH ×4 (06:00→17:21)
[2017-05-01] MEDS: SYRING IV SCH (07:37)
[2017-05-01] MEDS: SODIUM BICARB 8.4% IV SCH (07:37)
[2017-05-01] MEDS: 1/2 NORMAL SALINE IV SCH (07:37)
[2017-05-01] MEDS: FAMOTIDINE/PF 20 MG/2 ML VIAL IV SCH ×2 (08:08→20:26)
[2017-05-01] MEDS: ASPIRIN 81 MG EC TAB PO SCH (08:08)
[2017-05-01] MEDS: VANCOMYCIN ORAL SOLN PO SCH ×8 (08:09→20:27)
[2017-05-01] MEDS: LEVOFLOXACIN 250 MG/D5W 50ML 50 ML IVPB SCH (08:09)
[2017-05-01] MEDS: ALLOPURINOL 100 MG TABLET PO SCH (08:09)
[2017-05-01] MEDS: FOLIC ACID/VITAMIN B COMP W-C 1 MG CAPSULE PO SCH (08:09)
[2017-05-01] MEDS: ENOXAPARIN SODIUM 30 MG/0.3 ML SQ SCH (08:10)
[2017-05-01] MEDS: ZINC OXIDE OINT 30GM TUBE TP SCH (08:11)
[2017-05-01 09:26] LABS: ABG BASE EXCESS 1.4 mmol/L (-2.0-3.0); ABG HCO3 26.1 mmol/L (21.0-28.0); ABG OXYGEN SATURATION 98.7 % (95.0-99.0); ABG PCO2 41 mmHg (35-48)
[2017-05-01] MEDS ORDERED: HEPARIN SODIUM 5000UNIT/ML 1ML VIAL IJ PRN (17:15)
[2017-05-01] MEDS: TAMSULOSIN HCL 0.4 MG CAP.ER.24H PO SCH (20:28)
[2017-05-01] MEDS: ACETAMINOPHEN-CODEINE 300/30MG TAB PO PRN (21:54)
[2017-05-02] VITALS (15 sets, daily range): BP systolic 103–140; BP diastolic 52–80
[2017-05-02] MEDS ORDERED: HALOPERIDOL LACTATE 5 MG/ML VIAL IV SCH (00:30)
[2017-05-02] MEDS: MEROPENEM 500 MG VIAL IVP SCH ×3 (01:23→20:37)
[2017-05-02] MEDS: SODIUM BICARB 8.4% IV SCH (03:00)
[2017-05-02] MEDS: 1/2 NORMAL SALINE IV SCH (03:00)
[2017-05-02] MEDS: SYRING IV SCH (03:00)
[2017-05-02] MEDS: ACETAMINOPHEN-CODEINE 300/30MG TAB PO PRN (04:09)
[2017-05-02 04:40] LABS: MEAN CORPUSCULAR HEMOGLOBIN 27.3 pg (27.0-33.0); MEAN CORPUSCULAR HGB CONC 31.4 g/dL (32.0-36.0); MEAN CORPUSCULAR VOLUME 87.1 fL (79-99); NUCLEATED RED BLOOD CELLS 0.4 % (0.0-0.19); PLATELET COUNT (AUTO) 96 K/uL (130-400); RED CELL DISTRIBUTION WIDTH 20.9 % (11.0-15.5); WHITE BLOOD COUNT (AUTO) 8.6 K/uL (4.8-10.8)
[2017-05-02] MEDS: DEXTROSE 50%-WATER 50 ML DISP.SYRIN IV PRN (05:47)
[2017-05-02] MEDS: INSULIN HUMULIN R 100 UNIT/ML 3ML SQ SCH ×4 (06:47→21:00)
[2017-05-02] MEDS: IPRATROPIUM/ALBUTEROL SULFATE 3 ML SOLUTION IH SCH ×3 (06:59→20:15)
[2017-05-02] MEDS: ENOXAPARIN SODIUM 30 MG/0.3 ML SQ SCH (09:00)
[2017-05-02] MEDS: FAMOTIDINE/PF 20 MG/2 ML VIAL IV SCH ×2 (09:58→20:38)
[2017-05-02] MEDS: ASPIRIN 81 MG EC TAB PO SCH (09:58)
[2017-05-02] MEDS: FOLIC ACID/VITAMIN B COMP W-C 1 MG CAPSULE PO SCH (09:58)
[2017-05-02] MEDS: ALLOPURINOL 100 MG TABLET PO SCH (09:58)
[2017-05-02] MEDS: VANCOMYCIN ORAL SOLN PO SCH ×8 (10:00→21:50)
[2017-05-02] MEDS ORDERED: ENOXAPARIN SODIUM 30 MG/0.3 ML SQ ONE (10:03)
[2017-05-02 10:08] LABS: HEPATITIS Bs ANTIGEN SCREEN P Negative (Negative)
[2017-05-02] MEDS ORDERED: ETOMIDATE 2 MG/ML 10 ML VIAL IVP ONE (12:00)
[2017-05-02] MEDS ORDERED: SUCCINYLCHOLINE CHLORIDE 20 MG/ML 10 ML VIAL IVP ONE (12:00)
[2017-05-02 12:48] LABS: ABG BASE EXCESS 2.8 mmol/L (-2.0-3.0); ABG OXYGEN SATURATION 78.6 % (95.0-99.0); ABG PCO2 63 mmHg (35-48)
[2017-05-02] MEDS: ZINC OXIDE OINT 30GM TUBE TP SCH (14:30)
[2017-05-02] MEDS ORDERED: PROPOFOL 1000 MG/100 ML 100 ML IV ONE (18:25)
[2017-05-02] MEDS ORDERED: NOREPINEPHRINE 4MG/NS 250ML 250 ML IV PRN (18:45)
[2017-05-02 20:36] LABS: ABG BASE EXCESS 3.7 mmol/L (-2.0-3.0); ABG HCO3 29.1 mmol/L (21.0-28.0); ABG PCO2 47 mmHg (35-48)
[2017-05-02] MEDS: TAMSULOSIN HCL 0.4 MG CAP.ER.24H PO SCH (20:38)
[2017-05-02] MEDS: PROPOFOL 1000 MG/100 ML IV PRN (21:35)
[2017-05-02] MEDS: DEXTROSE 10%-WATER 1,000 ML IV SCH (22:43)
[2017-05-03] VITALS (27 sets, daily range): BP systolic 91–184; BP diastolic 48–117
[2017-05-03] MEDS: MEROPENEM 500 MG VIAL IVP SCH ×3 (01:29→17:26)
[2017-05-03] MEDS: IPRATROPIUM/ALBUTEROL SULFATE 3 ML SOLUTION IH SCH ×4 (01:45→19:04)
[2017-05-03] MEDS: PROPOFOL 1000 MG/100 ML IV PRN ×5 (02:27→23:12)
[2017-05-03 03:56] LABS: MEAN CORPUSCULAR HEMOGLOBIN 29.2 pg (27.0-33.0); MEAN CORPUSCULAR VOLUME 85.8 fL (79-99); NUCLEATED RED BLOOD CELLS 0.2 % (0.0-0.19); PLATELET COUNT (AUTO) 96 K/uL (130-400); RED BLOOD CELL COUNT(AUTO) 3.15 MIL/uL (4.50-6.20); RED CELL DISTRIBUTION WIDTH 20.8 % (11.0-15.5); WHITE BLOOD COUNT (AUTO) 7.1 K/uL (4.8-10.8)
[2017-05-03 04:03] LABS: CREATININE 3.3 mg/dL (0.5-1.5)
[2017-05-03] MEDS: INSULIN HUMULIN R 100 UNIT/ML 3ML SQ SCH ×4 (06:16→21:00)
[2017-05-03] MEDS: ALLOPURINOL 100 MG TABLET PO SCH (08:24)
[2017-05-03] MEDS: LEVOFLOXACIN 250 MG/D5W 50ML 50 ML IVPB SCH (08:24)
[2017-05-03] MEDS: ASPIRIN 81 MG EC TAB PO SCH (08:24)
[2017-05-03] MEDS: FOLIC ACID/VITAMIN B COMP W-C 1 MG CAPSULE PO SCH (08:24)
[2017-05-03] MEDS: FAMOTIDINE/PF 20 MG/2 ML VIAL IV SCH ×2 (08:24→20:09)
[2017-05-03] MEDS: ZINC OXIDE OINT 30GM TUBE TP SCH (08:25)
[2017-05-03] MEDS: VANCOMYCIN ORAL SOLN PO SCH ×8 (09:03→20:09)
[2017-05-03] MEDS: ENOXAPARIN SODIUM 30 MG/0.3 ML SQ SCH (09:41)
[2017-05-03] MEDS ORDERED: HEPARIN SODIUM 5000UNIT/ML 1ML VIAL IJ PRN (19:00)
[2017-05-03] MEDS: TAMSULOSIN HCL 0.4 MG CAP.ER.24H PO SCH (20:09)
[2017-05-04] VITALS (33 sets, daily range): BP systolic 94–170; BP diastolic 52–99
[2017-05-04] MEDS: IPRATROPIUM/ALBUTEROL SULFATE 3 ML SOLUTION IH SCH ×4 (00:01→19:16)
[2017-05-04] MEDS: MEROPENEM 500 MG VIAL IVP SCH ×3 (02:40→17:23)
[2017-05-04 03:54] LABS: HEMATOCRIT 30.4 % (42-54); MEAN CORPUSCULAR HEMOGLOBIN 28.5 pg (27.0-33.0); MEAN CORPUSCULAR HGB CONC 33.2 g/dL (32.0-36.0); MEAN CORPUSCULAR VOLUME 85.9 fL (79-99); NUCLEATED RED BLOOD CELLS 0.3 % (0.0-0.19); PLATELET COUNT (AUTO) 100 K/uL (130-400); RED BLOOD CELL COUNT(AUTO) 3.54 MIL/uL (4.50-6.20); RED CELL DISTRIBUTION WIDTH 20.4 % (11.0-15.5); WHITE BLOOD COUNT (AUTO) 7.1 K/uL (4.8-10.8)
[2017-05-04 04:11] LABS: CREATININE 2.4 mg/dL (0.5-1.5); MAGNESIUM 1.8 mg/dL (1.80-2.40); PHOSPHORUS 3.5 mg/dL (2.5-4.9); POTASSIUM 3.5 mmol/L (3.5-5.1)
[2017-05-04 04:28] LABS: ABG BASE EXCESS 3.1 mmol/L (-2.0-3.0); ABG HCO3 27.6 mmol/L (21.0-28.0); ABG OXYGEN SATURATION 93.4 % (95.0-99.0); ABG PCO2 42 mmHg (35-48)
[2017-05-04] MEDS: PROPOFOL 1000 MG/100 ML IV PRN (04:55)
[2017-05-04] MEDS: INSULIN HUMULIN R 100 UNIT/ML 3ML SQ SCH ×3 (06:10→17:39)
[2017-05-04] MEDS: FAMOTIDINE/PF 20 MG/2 ML VIAL IV SCH ×2 (09:08→21:05)
[2017-05-04] MEDS: ASPIRIN 81 MG EC TAB PO SCH (09:08)
[2017-05-04] MEDS: FOLIC ACID/VITAMIN B COMP W-C 1 MG CAPSULE PO SCH (09:08)
[2017-05-04] MEDS: ALLOPURINOL 100 MG TABLET PO SCH (09:08)
[2017-05-04] MEDS: HEPARIN SODIUM 5000UNIT/ML 1ML VIAL SQ SCH ×2 (09:11→21:08)
[2017-05-04] MEDS: ZINC OXIDE OINT 30GM TUBE TP SCH (09:12)
[2017-05-04] MEDS: TAMSULOSIN HCL 0.4 MG CAP.ER.24H PO SCH (21:06)
[2017-05-05] VITALS (32 sets, daily range): BP systolic 103–144; BP diastolic 55–104
[2017-05-05] MEDS: ACETAMINOPHEN-CODEINE 300/30MG TAB PO PRN ×2 (00:17→21:44)
[2017-05-05] MEDS: IPRATROPIUM/ALBUTEROL SULFATE 3 ML SOLUTION IH SCH ×4 (00:43→18:43)
[2017-05-05] MEDS: MEROPENEM 500 MG VIAL IVP SCH ×3 (02:13→18:00)
[2017-05-05 03:54] LABS: HEMATOCRIT 30.4 % (42-54); MEAN CORPUSCULAR HEMOGLOBIN 27.3 pg (27.0-33.0); MEAN CORPUSCULAR HGB CONC 32.1 g/dL (32.0-36.0); MEAN CORPUSCULAR VOLUME 84.9 fL (79-99); NUCLEATED RED BLOOD CELLS 0.1 % (0.0-0.19); PLATELET COUNT (AUTO) 107 K/uL (130-400); RED BLOOD CELL COUNT(AUTO) 3.58 MIL/uL (4.50-6.20); RED CELL DISTRIBUTION WIDTH 20.6 % (11.0-15.5); WHITE BLOOD COUNT (AUTO) 10.3 K/uL (4.8-10.8)
[2017-05-05 04:05] LABS: ALBUMIN 1.7 g/dL (3.5-5.0); CREATININE 3.1 mg/dL (0.5-1.5); PHOSPHORUS 4.5 mg/dL (2.5-4.9); POTASSIUM 4.1 mmol/L (3.5-5.1)
[2017-05-05 04:46] LABS: BAND NEUTROPHILS % (MANUAL) 25 % (0-2); LYMPHOCYTES % (MANUAL) 26 % (22-44); MAN.DIFF COMMENT-IMPRESSION MANUAL DIFFERENTIAL; MONOCYTES % (MANUAL) 3 % (2-9); PLATELET MORPHOLOGY COMMENT SLIGHTLY DECREASED; SEGMENTED NEUTROPHILS % 46 % (40-70)
[2017-05-05] MEDS: INSULIN HUMULIN R 100 UNIT/ML 3ML SQ SCH ×4 (06:00→18:00)
[2017-05-05] MEDS: ASPIRIN 81 MG EC TAB PO SCH (09:00)
[2017-05-05] MEDS: ALLOPURINOL 100 MG TABLET PO SCH (09:07)
[2017-05-05] MEDS: LEVOFLOXACIN 250 MG/D5W 50ML 50 ML IVPB SCH (09:08)
[2017-05-05] MEDS: FOLIC ACID/VITAMIN B COMP W-C 1 MG CAPSULE PO SCH (09:08)
[2017-05-05] MEDS: FAMOTIDINE/PF 20 MG/2 ML VIAL IV SCH ×2 (09:08→21:35)
[2017-05-05] MEDS: HEPARIN SODIUM 5000UNIT/ML 1ML VIAL SQ SCH ×2 (09:08→21:40)
[2017-05-05] MEDS: ZINC OXIDE OINT 30GM TUBE TP SCH (10:54)
[2017-05-05] MEDS: DEXTROSE 10%-WATER 1,000 ML IV SCH (15:05)
[2017-05-05] MEDS: ASPIRIN 81MG TAB.CHEW PO SCH (15:05)
[2017-05-05] MEDS: TAMSULOSIN HCL 0.4 MG CAP.ER.24H PO SCH (21:35)
[2017-05-06] VITALS (24 sets, daily range): BP systolic 99–141; BP diastolic 44–75
[2017-05-06] MEDS: IPRATROPIUM/ALBUTEROL SULFATE 3 ML SOLUTION IH SCH ×5 (00:20→23:40)
[2017-05-06] MEDS ORDERED: LORAZEPAM 2 MG/ML 1 ML VIAL IVP PRN (01:00)
[2017-05-06] MEDS: MEROPENEM 500 MG VIAL IVP SCH ×3 (01:25→17:42)
[2017-05-06 02:09] LABS: APPEARANCE,URINE Turbid (CLEAR); BILIRUBIN,URINE Small (NEGATIVE); COLOR,URINE Dark Yellow (YELLOW); GLUCOSE, URINE (UA) Negative (NEGATIVE); KETONES,URINE Negative (NEGATIVE); LEUKOCYTE ESTERASE ,URINE Moderate (NEGATIVE); NITRATE,URINE Negative (NEGATIVE); OCCULT BLOOD,URINE Large (NEGATIVE); PROTEIN,URINE 300 (NEGATIVE)
[2017-05-06 02:21] LABS: RBC,URINE TNTC /HPF (0-1); WBC,URINE 51-100 /HPF (0-1)
[2017-05-06 02:22] LABS: AMORPHOUS SEDIMENT,UR Many /LPF (None Seen); BACTERIA,URINE Moderate /HPF (None Seen); MUCUS,URINE Moderate LPF (None Seen); SQUAMOUS EPITHELIAL CELL,UR Moderate /LPF (0-2)
[2017-05-06 03:57] LABS: HEMATOCRIT 29.5 % (42-54); MEAN CORPUSCULAR HEMOGLOBIN 26.8 pg (27.0-33.0); MEAN CORPUSCULAR HGB CONC 31.7 g/dL (32.0-36.0); MEAN CORPUSCULAR VOLUME 84.8 fL (79-99); PLATELET COUNT (AUTO) 102 K/uL (130-400); RED BLOOD CELL COUNT(AUTO) 3.48 MIL/uL (4.50-6.20); WHITE BLOOD COUNT (AUTO) 11.5 K/uL (4.8-10.8)
[2017-05-06 04:08] LABS: INR 1.14 (0.85-1.15); PARTIAL THROMBOPLASTIN TIME 48.9 SEC (26.3-35.5); PROTHROMBIN TIME 11.9 SEC (9.6-11.6)
[2017-05-06 04:17] LABS: CREATININE 2.4 mg/dL (0.5-1.5); MAGNESIUM 1.8 mg/dL (1.80-2.40); PHOSPHORUS 3.9 mg/dL (2.5-4.9); POTASSIUM 3.6 mmol/L (3.5-5.1)
[2017-05-06] MEDS: INSULIN HUMULIN R 100 UNIT/ML 3ML SQ SCH ×5 (05:54→23:59)
[2017-05-06] MEDS: ZINC OXIDE OINT 30GM TUBE TP SCH (09:00)
[2017-05-06] MEDS: FAMOTIDINE/PF 20 MG/2 ML VIAL IV SCH ×2 (11:13→20:51)
[2017-05-06] MEDS: HEPARIN SODIUM 5000UNIT/ML 1ML VIAL SQ SCH ×2 (11:15→20:54)
[2017-05-06] MEDS: ACETYLCYSTEINE 10% 100MG/ML 4ML VIAL IH SCH ×3 (11:20→23:40)
[2017-05-06] MEDS ORDERED: LIDOCAINE HCL MPF 1% 5ML VIAL MISC SCH (12:15)
[2017-05-06 12:37] LABS: ABG BASE EXCESS -4.1 mmol/L (-2.0-3.0); ABG HCO3 23.5 mmol/L (21.0-28.0); ABG PCO2 53 mmHg (35-48)
[2017-05-06] MEDS: FOLIC ACID/VITAMIN B COMP W-C 1 MG CAPSULE PO SCH (15:02)
[2017-05-06] MEDS: ALLOPURINOL 100 MG TABLET PO SCH (15:02)
[2017-05-06] MEDS: ASPIRIN 81MG TAB.CHEW PO SCH (15:03)
[2017-05-06] MEDS ORDERED: MAGNESIUM 2GM PREMIX 50ML 50 ML IV ONE (18:00)
[2017-05-06] MEDS: QUETIAPINE FUMARATE 25 MG TAB PO SCH (20:51)
[2017-05-06] MEDS: TAMSULOSIN HCL 0.4 MG CAP.ER.24H PO SCH (20:51)
[2017-05-07] VITALS (21 sets, daily range): BP systolic 93–154; BP diastolic 48–76
[2017-05-07] MEDS: MEROPENEM 500 MG VIAL IVP SCH ×2 (02:49→09:22)
[2017-05-07 03:34] LABS: BASOPHILS % (AUTO) 0.3 % (0.0-5.0); EOSINOPHILS % (AUTO) 0.2 % (0.0-8.0); HEMATOCRIT 30.1 % (42-54); LYMPHOCYTES % (AUTO) 20.7 % (21.0-51.0); MEAN CORPUSCULAR HEMOGLOBIN 27.5 pg (27.0-33.0); MEAN CORPUSCULAR HGB CONC 32.2 g/dL (32.0-36.0); MEAN CORPUSCULAR VOLUME 85.6 fL (79-99); MONOCYTES % (AUTO) 8.9 % (3.0-13.0); NEUTROPHILS % (AUTO) 69.9 % (40.0-77.0); PLATELET COUNT (AUTO) 108 K/uL (130-400); RED BLOOD CELL COUNT(AUTO) 3.51 MIL/uL (4.50-6.20); RED CELL DISTRIBUTION WIDTH 20.1 % (11.0-15.5); WHITE BLOOD COUNT (AUTO) 11.7 K/uL (4.8-10.8)
[2017-05-07 04:05] LABS: CREATININE 3.1 mg/dL (0.5-1.5); POTASSIUM 3.9 mmol/L (3.5-5.1)
[2017-05-07] MEDS: INSULIN HUMULIN R 100 UNIT/ML 3ML SQ SCH ×4 (05:48→23:58)
[2017-05-07] MEDS: ACETYLCYSTEINE 10% 100MG/ML 4ML VIAL IH SCH ×3 (06:20→17:11)
[2017-05-07] MEDS: IPRATROPIUM/ALBUTEROL SULFATE 3 ML SOLUTION IH SCH ×3 (06:20→17:08)
[2017-05-07] MEDS ORDERED: HEPARIN SODIUM 5000UNIT/ML 1ML VIAL IJ PRN ×2 (08:17→08:30)
[2017-05-07] MEDS: ZINC OXIDE OINT 30GM TUBE TP SCH (09:00)
[2017-05-07] MEDS: LEVOFLOXACIN 250 MG/D5W 50ML 50 ML IVPB SCH (09:22)
[2017-05-07] MEDS: ALLOPURINOL 100 MG TABLET PO SCH (09:22)
[2017-05-07] MEDS: ASPIRIN 81MG TAB.CHEW PO SCH (09:22)
[2017-05-07] MEDS: FOLIC ACID/VITAMIN B COMP W-C 1 MG CAPSULE PO SCH (09:22)
[2017-05-07] MEDS: FAMOTIDINE/PF 20 MG/2 ML VIAL IV SCH ×2 (09:22→21:10)
[2017-05-07] MEDS: HEPARIN SODIUM 5000UNIT/ML 1ML VIAL SQ SCH ×2 (09:27→21:12)
[2017-05-07] MEDS ORDERED: PHARMACY COMMUNICATION MISC SCH (16:15)
[2017-05-07] MEDS: TAMSULOSIN HCL 0.4 MG CAP.ER.24H PO SCH (21:11)
[2017-05-07] MEDS: QUETIAPINE FUMARATE 25 MG TAB PO SCH (21:11)
[2017-05-08] VITALS (17 sets, daily range): BP systolic 95–161; BP diastolic 40–92
[2017-05-08 03:44] LABS: HEMATOCRIT 32.1 % (42-54); MEAN CORPUSCULAR HEMOGLOBIN 27.1 pg (27.0-33.0); MEAN CORPUSCULAR HGB CONC 32.1 g/dL (32.0-36.0); MEAN CORPUSCULAR VOLUME 84.5 fL (79-99); PLATELET COUNT (AUTO) 118 K/uL (130-400); RED CELL DISTRIBUTION WIDTH 19.8 % (11.0-15.5); WHITE BLOOD COUNT (AUTO) 7.4 K/uL (4.8-10.8)
[2017-05-08 03:52] LABS: CREATININE 2.3 mg/dL (0.5-1.5); POTASSIUM 3.7 mmol/L (3.5-5.1)
[2017-05-08] MEDS: INSULIN HUMULIN R 100 UNIT/ML 3ML SQ SCH ×2 (05:53→11:59)
[2017-05-08] MEDS: ACETYLCYSTEINE 10% 100MG/ML 4ML VIAL IH SCH ×3 (06:55→11:48)
[2017-05-08] MEDS: IPRATROPIUM/ALBUTEROL SULFATE 3 ML SOLUTION IH SCH ×5 (06:55→23:44)
[2017-05-08] MEDS: COLISTIN IH SCH ×3 (08:16→21:53)
[2017-05-08] MEDS: FOLIC ACID/VITAMIN B COMP W-C 1 MG CAPSULE PO SCH (08:45)
[2017-05-08] MEDS: ALLOPURINOL 100 MG TABLET PO SCH (08:45)
[2017-05-08] MEDS: ASPIRIN 81MG TAB.CHEW PO SCH (08:45)
[2017-05-08] MEDS: FAMOTIDINE/PF 20 MG/2 ML VIAL IV SCH ×2 (08:45→20:14)
[2017-05-08] MEDS: HEPARIN SODIUM 5000UNIT/ML 1ML VIAL SQ SCH ×2 (08:47→20:15)
[2017-05-08] MEDS: ZINC OXIDE OINT 30GM TUBE TP SCH (08:49)
[2017-05-08] MEDS ORDERED: GLUCAGON 1MG KIT 1 MG ML IM PRN (19:00)
[2017-05-08] MEDS ORDERED: DEXTROSE 50%-WATER 50 ML DISP.SYRIN IV PRN (19:00)
[2017-05-08] MEDS: QUETIAPINE FUMARATE 25 MG TAB PO SCH (20:14)
[2017-05-08] MEDS: TAMSULOSIN HCL 0.4 MG CAP.ER.24H PO SCH (20:14)
[2017-05-08] MEDS ORDERED: WATER FOR INJECTION,STERILE 5 ML VIAL ONE (21:49)
[2017-05-09 03:17] VITALS: BP 109/45
[2017-05-09 04:31] LABS: HEMATOCRIT 31.1 % (42-54); MEAN CORPUSCULAR HEMOGLOBIN 27.3 pg (27.0-33.0); MEAN CORPUSCULAR HGB CONC 32.5 g/dL (32.0-36.0); NUCLEATED RED BLOOD CELLS 0.1 % (0.0-0.19); PLATELET COUNT (AUTO) 149 K/uL (130-400); RED BLOOD CELL COUNT(AUTO) 3.71 MIL/uL (4.50-6.20); RED CELL DISTRIBUTION WIDTH 19.6 % (11.0-15.5); WHITE BLOOD COUNT (AUTO) 9.4 K/uL (4.8-10.8)
[2017-05-09 04:45] LABS: CREATININE 2.9 mg/dL (0.5-1.5); MAGNESIUM 1.8 mg/dL (1.80-2.40); PHOSPHORUS 2.7 mg/dL (2.5-4.9); POTASSIUM 3.8 mmol/L (3.5-5.1)
[2017-05-09] MEDS: INSULIN HUMULIN R 100 UNIT/ML 3ML SQ SCH ×2 (06:00→12:00)
[2017-05-09] MEDS: COLISTIN IH SCH ×3 (06:19→21:53)
[2017-05-09] MEDS: IPRATROPIUM/ALBUTEROL SULFATE 3 ML SOLUTION IH SCH ×4 (06:19→23:30)
[2017-05-09 07:37] VITALS: BP 137/58
[2017-05-09] MEDS: ASPIRIN 81MG TAB.CHEW PO SCH (08:40)
[2017-05-09] MEDS: FAMOTIDINE/PF 20 MG/2 ML VIAL IV SCH ×2 (08:40→19:48)
[2017-05-09] MEDS: FOLIC ACID/VITAMIN B COMP W-C 1 MG CAPSULE PO SCH (08:40)
[2017-05-09] MEDS: ALLOPURINOL 100 MG TABLET PO SCH (08:40)
[2017-05-09] MEDS: HEPARIN SODIUM 5000UNIT/ML 1ML VIAL SQ SCH ×2 (08:41→19:49)
[2017-05-09] MEDS: ZINC OXIDE OINT 30GM TUBE TP SCH (08:41)
[2017-05-09 11:40] VITALS: BP 142/66
[2017-05-09 16:44] VITALS: BP 153/73
[2017-05-09 19:29] VITALS: BP 150/69
[2017-05-09] MEDS: QUETIAPINE FUMARATE 25 MG TAB PO SCH (19:48)
[2017-05-09] MEDS: TAMSULOSIN HCL 0.4 MG CAP.ER.24H PO SCH (19:48)
[2017-05-09] MEDS ORDERED: WATER FOR INJECTION,STERILE 5 ML VIAL ONE (21:49)
[2017-05-09 23:26] VITALS: BP 162/82
[2017-05-10 03:48] LABS: ABG BASE EXCESS 5.3 mmol/L (-2.0-3.0); ABG HCO3 29.7 mmol/L (21.0-28.0); ABG OXYGEN SATURATION 89.3 % (95.0-99.0); ABG PCO2 43 mmHg (35-48)
[2017-05-10 03:52] VITALS: BP 152/64
[2017-05-10 04:38] LABS: HEMATOCRIT 32.2 % (42-54); MEAN CORPUSCULAR HEMOGLOBIN 26.3 pg (27.0-33.0); MEAN CORPUSCULAR HGB CONC 31.6 g/dL (32.0-36.0); MEAN CORPUSCULAR VOLUME 83.3 fL (79-99); NUCLEATED RED BLOOD CELLS 0.1 % (0.0-0.19); PLATELET COUNT (AUTO) 171 K/uL (130-400); RED BLOOD CELL COUNT(AUTO) 3.87 MIL/uL (4.50-6.20); RED CELL DISTRIBUTION WIDTH 19.6 % (11.0-15.5); WHITE BLOOD COUNT (AUTO) 12.3 K/uL (4.8-10.8)
[2017-05-10 04:53] LABS: CREATININE 2.9 mg/dL (0.5-1.5); MAGNESIUM 1.8 mg/dL (1.80-2.40); POTASSIUM 4.1 mmol/L (3.5-5.1)
[2017-05-10] MEDS: INSULIN HUMULIN R 100 UNIT/ML 3ML SQ SCH ×4 (05:13→18:00)
[2017-05-10] MEDS: IPRATROPIUM/ALBUTEROL SULFATE 3 ML SOLUTION IH SCH ×3 (06:44→19:20)
[2017-05-10] MEDS: COLISTIN IH SCH ×3 (06:44→22:19)
[2017-05-10 07:00] VITALS: BP 97/48
[2017-05-10] MEDS: FOLIC ACID/VITAMIN B COMP W-C 1 MG CAPSULE PO SCH (08:35)
[2017-05-10] MEDS: ALLOPURINOL 100 MG TABLET PO SCH (08:35)
[2017-05-10] MEDS: ASPIRIN 81MG TAB.CHEW PO SCH (08:35)
[2017-05-10] MEDS: CEFTAZIDIME PENTAHYDRATE 1 GM/VIAL IVP SCH (08:40)
[2017-05-10] MEDS: HEPARIN SODIUM 5000UNIT/ML 1ML VIAL SQ SCH ×2 (08:41→21:21)
[2017-05-10] MEDS: FAMOTIDINE/PF 20 MG/2 ML VIAL IV SCH ×2 (08:41→21:20)
[2017-05-10] MEDS: ZINC OXIDE OINT 30GM TUBE TP SCH (08:43)
[2017-05-10] MEDS ORDERED: CEFTAZIDIME 1GM+NS 50ML 50 ML IV SCH (09:00)
[2017-05-10] MEDS ORDERED: HEPARIN SODIUM 5000UNIT/ML 1ML VIAL IJ PRN (09:20)
[2017-05-10] MEDS ORDERED: ALBUMIN (HUMAN) 25% 100 ML IV PRN (09:30)
[2017-05-10 11:00] VITALS: BP 107/55
[2017-05-10 16:00] VITALS: BP 148/66
[2017-05-10 19:42] VITALS: BP 141/65
[2017-05-10] MEDS: TAMSULOSIN HCL 0.4 MG CAP.ER.24H PO SCH (21:20)
[2017-05-10] MEDS: QUETIAPINE FUMARATE 25 MG TAB PO SCH (21:20)
[2017-05-10 23:45] VITALS: BP 119/40
[2017-05-11] MEDS: IPRATROPIUM/ALBUTEROL SULFATE 3 ML SOLUTION IH SCH ×4 (00:20→18:13)
[2017-05-11 03:41] VITALS: BP 129/57
[2017-05-11 04:06] LABS: CREATININE 2.4 mg/dL (0.5-1.5); POTASSIUM 3.6 mmol/L (3.5-5.1)
[2017-05-11] MEDS: INSULIN HUMULIN R 100 UNIT/ML 3ML SQ SCH ×5 (05:39→23:13)
[2017-05-11] MEDS: COLISTIN IH SCH ×3 (06:33→21:37)
[2017-05-11 07:00] VITALS: BP 143/58
[2017-05-11] MEDS: ASPIRIN 81MG TAB.CHEW PO SCH (09:37)
[2017-05-11] MEDS: ALLOPURINOL 100 MG TABLET PO SCH (09:37)
[2017-05-11] MEDS: FOLIC ACID/VITAMIN B COMP W-C 1 MG CAPSULE PO SCH (09:37)
[2017-05-11] MEDS: FAMOTIDINE/PF 20 MG/2 ML VIAL IV SCH ×2 (09:37→20:29)
[2017-05-11] MEDS: HEPARIN SODIUM 5000UNIT/ML 1ML VIAL SQ SCH ×2 (09:38→20:41)
[2017-05-11] MEDS: ZINC OXIDE OINT 30GM TUBE TP SCH (09:38)
[2017-05-11 11:00] VITALS: BP 132/55
[2017-05-11 16:00] VITALS: BP 112/55
[2017-05-11 19:49] VITALS: BP 141/86
[2017-05-11] MEDS: TAMSULOSIN HCL 0.4 MG CAP.ER.24H PO SCH (20:26)
[2017-05-11] MEDS: QUETIAPINE FUMARATE 25 MG TAB PO SCH (20:26)
[2017-05-11 23:57] VITALS: BP 133/60
[2017-05-12] MEDS: IPRATROPIUM/ALBUTEROL SULFATE 3 ML SOLUTION IH SCH ×5 (00:09→23:34)
[2017-05-12 03:46] VITALS: BP 151/64
[2017-05-12] MEDS: INSULIN HUMULIN R 100 UNIT/ML 3ML SQ SCH ×3 (06:00→18:00)
[2017-05-12] MEDS: COLISTIN IH SCH ×3 (06:21→22:00)
[2017-05-12 07:36] VITALS: BP 153/73
[2017-05-12] MEDS: CEFTAZIDIME PENTAHYDRATE 1 GM/VIAL IVP SCH (08:28)
[2017-05-12] MEDS: HEPARIN SODIUM 5000UNIT/ML 1ML VIAL SQ SCH ×2 (08:29→20:21)
[2017-05-12] MEDS: ZINC OXIDE OINT 30GM TUBE TP SCH (08:29)
[2017-05-12] MEDS: FAMOTIDINE/PF 20 MG/2 ML VIAL IV SCH ×2 (08:29→20:13)
[2017-05-12] MEDS: FOLIC ACID/VITAMIN B COMP W-C 1 MG CAPSULE PO SCH (08:29)
[2017-05-12] MEDS: ALLOPURINOL 100 MG TABLET PO SCH (08:29)
[2017-05-12] MEDS: ASPIRIN 81MG TAB.CHEW PO SCH (08:29)
[2017-05-12 11:15] VITALS: BP 144/80
[2017-05-12 16:12] VITALS: BP 142/68
[2017-05-12 19:35] VITALS: BP 148/72
[2017-05-12] MEDS: TAMSULOSIN HCL 0.4 MG CAP.ER.24H PO SCH (20:13)
[2017-05-12] MEDS: QUETIAPINE FUMARATE 25 MG TAB PO SCH (20:13)
[2017-05-12 23:50] VITALS: BP 124/61
[2017-05-13] MEDS: DEXTROSE 50%-WATER 50 ML DISP.SYRIN IV PRN ×3 (00:23→11:34)
[2017-05-13 04:56] VITALS: BP 122/61
[2017-05-13] MEDS: INSULIN HUMULIN R 100 UNIT/ML 3ML SQ SCH ×3 (06:00→11:34)
[2017-05-13] MEDS: IPRATROPIUM/ALBUTEROL SULFATE 3 ML SOLUTION IH SCH ×2 (06:24→11:15)
[2017-05-13] MEDS: COLISTIN IH SCH (06:33)
[2017-05-13 07:50] VITALS: BP 116/60
[2017-05-13] MEDS: FOLIC ACID/VITAMIN B COMP W-C 1 MG CAPSULE PO SCH (09:00)
[2017-05-13] MEDS: ASPIRIN 81MG TAB.CHEW PO SCH (09:00)
[2017-05-13] MEDS: ALLOPURINOL 100 MG TABLET PO SCH (09:00)
[2017-05-13] MEDS: ZINC OXIDE OINT 30GM TUBE TP SCH (09:25)
[2017-05-13] MEDS: HEPARIN SODIUM 5000UNIT/ML 1ML VIAL SQ SCH (09:25)
[2017-05-13] MEDS: FAMOTIDINE/PF 20 MG/2 ML VIAL IV SCH (09:25)
[2017-05-13 11:41] VITALS: BP 122/65
[2017-05-13 16:00] VITALS: BP 136/72
== END 2017-05-13 17:00 | disposition hospice, home (50) | DRG 871 ==
LOC: EDH 15:24 → EDHIP 18:00 → OBSVTOIN 18:00 → 2AH 04-20 16:03 → 3CH 04-24 23:56 → 2CH 04-29 10:45 → 2BH 04-29 12:13 → 2AH 05-01 13:50 → 2BH 05-02 18:24 → 2AH 05-08 13:49
PROVIDERS: ADMIT Internal Medicine; ATTEND Internal Medicine
PROC: 5A09357 Assistance with Respiratory Ventilation, Less than 24 Consecutive Hours, Continuous Positive Airway Pressure (ICD-10-PCS; principal; 2017-04-19)
PROC: 5A1945Z Respiratory Ventilation, 24-96 Consecutive Hours (ICD-10-PCS; 2017-04-19)
PROC: 0BH17EZ Insertion of Endotracheal Airway into Trachea, Via Natural or Artificial Opening (ICD-10-PCS; 2017-04-19)
PROC: 05HY33Z Insertion of Infusion Device into Upper Vein, Percutaneous Approach (ICD-10-PCS; 2017-04-19)
PROC: 5A09457 Assistance with Respiratory Ventilation, 24-96 Consecutive Hours, Continuous Positive Airway Pressure (ICD-10-PCS; 2017-04-19)
PROC: 5A09357 Assistance with Respiratory Ventilation, Less than 24 Consecutive Hours, Continuous Positive Airway Pressure (ICD-10-PCS; 2017-04-19)
PROC: 5A09357 Assistance with Respiratory Ventilation, Less than 24 Consecutive Hours, Continuous Positive Airway Pressure (ICD-10-PCS; 2017-04-19)
PROC: 5A09357 Assistance with Respiratory Ventilation, Less than 24 Consecutive Hours, Continuous Positive Airway Pressure (ICD-10-PCS; 2017-04-19)
PROC: 5A09357 Assistance with Respiratory Ventilation, Less than 24 Consecutive Hours, Continuous Positive Airway Pressure (ICD-10-PCS; 2017-04-19)
PROC: 5A09357 Assistance with Respiratory Ventilation, Less than 24 Consecutive Hours, Continuous Positive Airway Pressure (ICD-10-PCS; 2017-04-19)
PROC: 0W9930Z Drainage of Right Pleural Cavity with Drainage Device, Percutaneous Approach (ICD-10-PCS; 2017-04-21)
PROC: 0S9C3ZZ Drainage of Right Knee Joint, Percutaneous Approach (ICD-10-PCS; 2017-04-22)
PROC: 5A1D70Z Performance of Urinary Filtration, Intermittent, Less than 6 Hours Per Day (ICD-10-PCS; 2017-04-30)
PROC: 5A1D70Z Performance of Urinary Filtration, Intermittent, Less than 6 Hours Per Day (ICD-10-PCS; 2017-05-01)
PROC: 5A1D70Z Performance of Urinary Filtration, Intermittent, Less than 6 Hours Per Day (ICD-10-PCS; 2017-05-03)
PROC: 5A1D70Z Performance of Urinary Filtration, Intermittent, Less than 6 Hours Per Day (ICD-10-PCS; 2017-05-05)
PROC: 5A1D70Z Performance of Urinary Filtration, Intermittent, Less than 6 Hours Per Day (ICD-10-PCS; 2017-05-07)
PROC: 5A1D70Z Performance of Urinary Filtration, Intermittent, Less than 6 Hours Per Day (ICD-10-PCS; 2017-05-10)
DX: A41.4 Sepsis due to anaerobes (principal); J18.9 Pneumonia, unspecified organism; I21.4 Non-ST elevation (NSTEMI) myocardial infarction; N17.0 Acute kidney failure with tubular necrosis; J96.21 Acute and chronic respiratory failure with hypoxia; E43 Unspecified severe protein-calorie malnutrition; A04.71 Enterocolitis due to Clostridium difficile, recurrent; R65.21 Severe sepsis with septic shock; G92 Toxic encephalopathy; A04.72 Enterocolitis due to Clostridium difficile, not specified as recurrent; J96.22 Acute and chronic respiratory failure with hypercapnia; N18.6 End stage renal disease; I13.0 Hypertensive heart and chronic kidney disease with heart failure and stage 1 through stage 4 chronic kidney disease, or unspecified chronic kidney disease; G81.94 Hemiplegia, unspecified affecting left nondominant side; N39.0 Urinary tract infection, site not specified; N18.4 Chronic kidney disease, stage 4 (severe); M00.9 Pyogenic arthritis, unspecified; I13.2 Hypertensive heart and chronic kidney disease with heart failure and with stage 5 chronic kidney disease, or end stage renal disease; I50.9 Heart failure, unspecified; I25.10 Atherosclerotic heart disease of native coronary artery without angina pectoris; E78.5 Hyperlipidemia, unspecified; Z74.01 Bed confinement status; D63.1 Anemia in chronic kidney disease; E11.21 Type 2 diabetes mellitus with diabetic nephropathy; E11.22 Type 2 diabetes mellitus with diabetic chronic kidney disease; E11.51 Type 2 diabetes mellitus with diabetic peripheral angiopathy without gangrene; E11.649 Type 2 diabetes mellitus with hypoglycemia without coma; E11.65 Type 2 diabetes mellitus with hyperglycemia; E86.0 Dehydration; E87.6 Hypokalemia; I25.2 Old myocardial infarction; I25.5 Ischemic cardiomyopathy; I48.0 Paroxysmal atrial fibrillation; I49.5 Sick sinus syndrome; Z51.5 Encounter for palliative care; Z66 Do not resuscitate; Z79.01 Long term (current) use of anticoagulants; Z85.46 Personal history of malignant neoplasm of prostate; Z86.19 Personal history of other infectious and parasitic diseases; Z86.73 Personal history of transient ischemic attack (TIA), and cerebral infarction without residual deficits; Z87.01 Personal history of pneumonia (recurrent); Z91.15 Patient's noncompliance with renal dialysis; Z91.19 Patient's noncompliance with other medical treatment and regimen; Z95.5 Presence of coronary angioplasty implant and graft; Z95.810 Presence of automatic (implantable) cardiac defibrillator; Z99.2 Dependence on renal dialysis; R13.12 Dysphagia, oropharyngeal phase
CPT/HCPCS: 31500; 31720; 32555; 36415; 36600; 36800; 71045; 71250; 73560; 74176; 76770; 80048; 80053; 80061; 80069; 80076; 81001; 82040; 82140; 82270; 82533; 82550; 82553; 82728; 82803; 82945; 82948; 83036; 83540; 83550; 83605; 83615; 83735; 83874; 83880; 83986; 84100; 84155; 84157; 84439; 84443; 84484; 84520; 84550; 85025; 85027; 85610; 85651; 85730; 86141; 86701; 86704; 86706; 87040; 87046; 87070; 87071; 87076; 87088; 87103; 87116; 87177; 87205; 87206; 87324; 87340; 87390; 87507; 87520; 88108; 88305; 88341; 88342; 89051; 89060; 90935; 92610; 93005; 93970; 94002; 94003; 94640; 94660; 94664; 94667; 94668; 97039; 99291; A4218; A4344; A6234; C1729; C1752; J0330; J0696; J0713; J0770; J1200; J1644; J1650; J1815; J1956; J2060; J2185; J2270; J2704; J3370; J3490; J7030; J7040; J7042; J7070; J7608